=== PATIENT | male | born 1995 | race Two or more races ===

== ENCOUNTER 2022-07-16 06:43 | Emergency (ER) | payer OTHER ==
[~2022-07-16] VITALS: Ht 177.8 cm; Wt 65.3 kg
== END 2022-07-16 11:53 | disposition home or self-care (01) ==
LOC: ER 06:43
DX: B34.9 Viral infection, unspecified (principal)

== ENCOUNTER 2022-07-17 17:51 | Emergency (ER) | payer OTHER ==
[~2022-07-17] VITALS: Ht 177.8 cm; Wt 65.3 kg
== END 2022-07-18 11:56 | disposition home or self-care (01) ==
LOC: ER 17:51
DX: A90 Dengue fever [classical dengue] (principal); R10.9 Unspecified abdominal pain

== ENCOUNTER 2022-08-09 07:13 | Outpatient (CLI) | payer OTHER | END 2022-08-09 07:19 | disposition home or self-care (01) | LOC: LAB 07:13 | PROVIDERS: ATTEND Obstetrics & Gynecology | DX: Z20.828 Contact with and (suspected) exposure to other viral communicable diseases (principal); Z20.818 Contact with and (suspected) exposure to other bacterial communicable diseases ==